=== PATIENT | male | born 1970 | race Caucasian/White ===

== ENCOUNTER 2016-04-05 14:08 | Inpatient (IN) | payer BC ==
[~2016-04-05] VITALS: Ht 172.7 cm; Wt 54.4 kg
[~2016-04-05 14:08] MED LIST: ALBUTEROL0.09 MG/Ac IH; NOMEDS XX; ZITHROMAX Z-PA250 M1 PO
[2016-04-05 14:13] VITALS: BP 127/97
[2016-04-05 14:41] LABS: HEMOGLOBIN 15.1 g/dL (14.1-18.0); LYMPH # 2.1 K/mm3 (0.7-4.5); LYMPH % 16.8 % (10-50)
--- NOTE | 2016-04-05 15:01 | Emergency Room Report ---
History of Present Illness Time Seen by MD Ramos Presenting Problem in Triage Pt arrived:Walked Presenting Problem:PT STATES CHEST PAIN THAT WENT UP IN THE LEFT SIDE OF HIS NECK STARTED 1630 YESTERDAY. 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 N Clinical Suspician of Infection? N Mental Status: 1 - Regular (Normal Baseline) Sepsis Risk:Low Sepsis Risk Have you (or family members/close friends) recently traveled outside the [place]? N If Yes, where/when: Have you had exposure to infectious disease within the past month? TB? Other? Specify: Source patient, RN notes reviewed Exam Limitations no limitations Comment Chest pain on the left side that started around 4:30PM yesterday and goes into his left neck and is sharp in nature and rates the pain as an 8/10. No nausea, vomting or diaphoresis. He still smokes over a pack a day but no other medical problems Cardiac Chest Pain Chest pain indicative of cardiac Yes Timing/Duration 24 hours ALLERGIES Coded Allergies: No Known Drug Allergies (04/05/16) Home Medications Active Scripts Albuterol (Albuterol Inhaler) 0.09 MG IH Q6HP PRN bronchospasm #1 POW Prov: 08/16/14 History Medical History General CAD? No Angina: No [place]: No Hypertension? No Hyperlipidemia? No CHF? No COPD? No Asthma? No Anemia? No Hernia? No Thyroid Problems? No Hypothyroidism? No CVA? No Seizures? No Diabetes? No End Stage Renal Disease? No UTI? No Stones? No GB Disease: No Nephritic Syndrome? No Asplenia? No Hepatitis? No Sickle Cell Disease? No Arthritis? No Cataracts? No Glaucoma? No MRSA? No TB? No Cancer? No Site: N Immunization Hx DT/Tetanus Unknown Surgical Hx Previous Surgery?N Social History Smoking Hx Smoker: Current Every Day Smoker Tobacco: Yes Type Cigarettes Packs/day 1 1/2 - 2 Packs Alcohol Alcohol: No Review of Systems All Other Systems Reviewed and Negative Constitutional see HPI Respiratory see HPI Cardiovascular see HPI Physical Exam Vital Signs Vital Signs Date Time Temp Pulse Resp B/P Pulse O2 O2 Flow FiO2 Ox Delivery Rate 04/05 1916 18 04/05 1900 16 04/05 1850 18 04/05 1835 98.3 69 18 140/92 95 OXYGEN 2 04/05 1818 61 04/05 1818 98.6 61 20 144/79 04/05 1818 91 OXYGEN 04/05 1758 98.6 61 20 144/79 91 2 04/05 1747 61 20 136/93 93 04/05 1712 98.4 95 20 135/82 98 04/05 1709 95 20 135/82 98 04/05 1704 20 04/05 1618 98.4 71 16 132/81 98 04/05 1523 98.4 80 16 112/74 98 04/05 1501 16 04/05 1413 98.4 97 18 127/97 98 General Appearance normal appearance, WD/WN, no apparent distress Respiratory Status No: respiratory distress. Lung Sounds bilateral: rhonchi. 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 Yes Turner was queried for this patient? No Reason not queried - emergent pt cond=no time Results/Orders Laboratory Tests 04/05/16 1425: Sodium 139, Potassium 3.9, Chloride 102, Carbon Dioxide 26, BUN 10, Creatinine 0.8, Estimated Creat Clear 99, Estimated GFR (MDRD) 106, Glucose 131 H, Calcium 9.0, Total Bilirubin 0.4, AST 13 L, ALT 18, Alkaline Phosphatase 85, Creatine Kinase 68, CK-MB (CK-2) Rel Index 2.2, CK and CKMB Interp 1.5, Troponin I 0.02, Total Protein 7.9, Albumin 4.0, Globulin 3.9 H, Albumin/Globulin Ratio 1.0 L, D-Dimer < 100, WBC 12.4 H, RBC 5.02, Hgb 15.1, Hct 45.8, MCV 91.2, RDW 13.6, Plt Count 372, MPV 8.0, Gran % 76.8, Gran # 9.5 H, Lymphocytes % 16.8, Monocytes % 4.7, Eosinophils % 1.0, Basophils % 0.7, Lymphocytes # 2.1, Monocytes # 0.6, Eosinophils # 0.1, Basophils # 0.1, PUBS MCHC 33.0, MCH 30.1 Current Medication Orders Sig/Dionne Start time Last Medication Dose Route Stop Time Status Admin Acetaminophen 650 MG Q4HP PRN 04/05 1800 AC PO Acetaminophen/ 1 TAB Q6HP PRN 04/05 1800 AC 04/05 Hydrocodone Bitart PO 1916 Influenza Virus 0.5 ML PRN PRN 04/05 1800 AC Vaccine Quadrival IM Nicotine 21 MG DAILYP PRN 04/05 1800 AC TD Ondansetron HCl 4 MG Q6HP PRN 04/05 1800 AC 04/05 IV 1850 Orders Procedure Date/time Status CBC WITH AUTO DIFF 04/06 0600 Complete BASIC METABOLIC PROFILE 04/06 0600 Complete DIET-REGULAR ( TOLERATED) 04/05 D Complete ADMITTED PT IS ACTUALLY IN BED 04/05 1838 Active Decision to admit 04/05 1614 Active D-DIMER 04/05 1458 Complete ELECTROCARDIOGRAM REQUEST 04/05 1422 Active IV SALINE LOCK 04/05 1422 Active GEOTECHNICIAN 04/05 1422 Active COMPLETE METABOLIC PANEL 04/05 1422 Complete CBC WITH AUTO DIFF 04/05 1422 Complete CARDIAC ENZYMES 04/05 1422 Complete 12 LEAD EKG-BESSON (INITIAL) 04/05 1420 Active ADMIT PATIENT 04/05 UNK Active PULSE OXIMETRY REQUEST 04/05 UNK Active VITAL SIGNS 04/05 UNK Active ALIGNER 04/05 UNK Active POM NURSE KIRK HOSE ORDER 04/05 UNK Active RECORD I & O 04/05 UNK Active CODE STATUS 04/05 UNK Active PATIENT ACTIVITY ORDER 04/05 UNK Active CM/EKG CM/agricultural equipment test engineer Rhythm Normal Sinus Rhythm EKG rate (90), NSR, LAD and COPD pattern XRAY/CT/US XRAY/CT/US XRAY chest XR interpretation by discussed w/radiologist Xray Results Large Pneumothorax on left side but no evidence of tension pneumothorax Procedures Chest Tube Chest Tube Insertion Risks/benefits discussed with pt/guardian? Yes Chest Tube Location fifth interspace Anesthesia 1% Lidocaine Volume Anesthetic ml- 10 Size of Thai Tube (cm) 28 Chest Tube Procedure betadine prep, sterile drapes applied, bailey of air heard, tube sutured to skin, connected to suction, sterile dressing applied, post procedure CXR. Tube Drainage: air Progress LEFT ANTERIOR AXILLARY LINE AT THE 5TH ICS OPENED WITH #15 BLADE ABOUT A 2 CM INCISION. BLUNT DISSECTION TO THE ICS AND A LARGE CURVED BLUNT FORCEPS USED TO OPEN THE PLEURAL SPACE WITH A LARGE BAILEY OF AIR. 28F CHEST TUBE INSERTED OVER TROCHAR WITHOUT DIFFICULTY. SUTURED TO THE SKIN WITH 0-SILK SUTURE x 2 AND CHEST TUBE ANCHORED WITH SUTURE WELL. PETROLEUM GAUZE APPLIED AROUND THE TUBE AND 4X4'S APPLIED AND TAPED WITH 3" FOAM TAPE AND TUBE HOOKED UP TO PLEUROVAC WELL. pT. TOLERATED PROCEDURE WELL Departure Departure Time of Disposition 1715 Disposition Still a Patient Clinical Impression Primary Impression: Pneumothorax, left Condition STABLE Referrals NO REFERRAL (Family) Additional Instructions Being admitted to Dr. Joseph after chest tube placement. ED Critical Care Critical Care No at [id number]
--- NOTE | 2016-04-05 15:01 | Emergency Room Report ---
History of Present Illness Time Seen by MD Ramos Presenting Problem in Triage Pt arrived:Walked Presenting Problem:PT STATES CHEST PAIN THAT WENT UP IN THE LEFT SIDE OF HIS NECK STARTED 1630 YESTERDAY. 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 N Clinical Suspician of Infection? N Mental Status: 1 - Regular (Normal Baseline) Sepsis Risk:Low Sepsis Risk Have you (or family members/close friends) recently traveled outside the [place]? N If Yes, where/when: Have you had exposure to infectious disease within the past month? TB? Other? Specify: Source patient, RN notes reviewed Exam Limitations no limitations Comment Chest pain on the left side that started around 4:30PM yesterday and goes into his left neck and is sharp in nature and rates the pain as an 8/10. No nausea, vomting or diaphoresis. He still smokes over a pack a day but no other medical problems Cardiac Chest Pain Chest pain indicative of cardiac Yes Timing/Duration 24 hours ALLERGIES Coded Allergies: No Known Drug Allergies (04/05/16) Home Medications Active Scripts Albuterol (Albuterol Inhaler) 0.09 MG IH Q6HP PRN bronchospasm #1 POW Prov: 08/16/14 History Medical History General CAD? No Angina: No [place]: No Hypertension? No Hyperlipidemia? No CHF? No COPD? No Asthma? No Anemia? No Hernia? No Thyroid Problems? No Hypothyroidism? No CVA? No Seizures? No Diabetes? No End Stage Renal Disease? No UTI? No Stones? No GB Disease: No Nephritic Syndrome? No Asplenia? No Hepatitis? No Sickle Cell Disease? No Arthritis? No Cataracts? No Glaucoma? No MRSA? No TB? No Cancer? No Site: N Immunization Hx DT/Tetanus Unknown Surgical Hx Previous Surgery?N Social History Smoking Hx Smoker: Current Every Day Smoker Tobacco: Yes Type Cigarettes Packs/day 1 1/2 - 2 Packs Alcohol Alcohol: No Review of Systems All Other Systems Reviewed and Negative Constitutional see HPI Respiratory see HPI Cardiovascular see HPI Physical Exam Vital Signs Vital Signs Date Time Temp Pulse Resp B/P Pulse O2 O2 Flow FiO2 Ox Delivery Rate 04/05 1916 18 04/05 1900 16 04/05 1850 18 04/05 1835 98.3 69 18 140/92 95 OXYGEN 2 04/05 1818 61 04/05 1818 98.6 61 20 144/79 04/05 1818 91 OXYGEN 04/05 1758 98.6 61 20 144/79 91 2 04/05 1747 61 20 136/93 93 04/05 1712 98.4 95 20 135/82 98 04/05 1709 95 20 135/82 98 04/05 1704 20 04/05 1618 98.4 71 16 132/81 98 04/05 1523 98.4 80 16 112/74 98 04/05 1501 16 04/05 1413 98.4 97 18 127/97 98 General Appearance normal appearance, WD/WN, no apparent distress Respiratory Status No: respiratory distress. Lung Sounds bilateral: rhonchi. 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 Yes Turner was queried for this patient? No Reason not queried - emergent pt cond=no time Results/Orders Laboratory Tests 04/05/16 1425: Sodium 139, Potassium 3.9, Chloride 102, Carbon Dioxide 26, BUN 10, Creatinine 0.8, Estimated Creat Clear 99, Estimated GFR (MDRD) 106, Glucose 131 H, Calcium 9.0, Total Bilirubin 0.4, AST 13 L, ALT 18, Alkaline Phosphatase 85, Creatine Kinase 68, CK-MB (CK-2) Rel Index 2.2, CK and CKMB Interp 1.5, Troponin I 0.02, Total Protein 7.9, Albumin 4.0, Globulin 3.9 H, Albumin/Globulin Ratio 1.0 L, D-Dimer < 100, WBC 12.4 H, RBC 5.02, Hgb 15.1, Hct 45.8, MCV 91.2, RDW 13.6, Plt Count 372, MPV 8.0, Gran % 76.8, Gran # 9.5 H, Lymphocytes % 16.8, Monocytes % 4.7, Eosinophils % 1.0, Basophils % 0.7, Lymphocytes # 2.1, Monocytes # 0.6, Eosinophils # 0.1, Basophils # 0.1, PUBS MCHC 33.0, MCH 30.1 Current Medication Orders Sig/Dionne Start time Last Medication Dose Route Stop Time Status Admin Acetaminophen 650 MG Q4HP PRN 04/05 1800 AC PO Acetaminophen/ 1 TAB Q6HP PRN 04/05 1800 AC 04/05 Hydrocodone Bitart PO 1916 Influenza Virus 0.5 ML PRN PRN 04/05 1800 AC Vaccine Quadrival IM Nicotine 21 MG DAILYP PRN 04/05 1800 AC TD Ondansetron HCl 4 MG Q6HP PRN 04/05 1800 AC 04/05 IV 1850 Orders Procedure Date/time Status CBC WITH AUTO DIFF 04/06 0600 Complete BASIC METABOLIC PROFILE 04/06 0600 Complete DIET-REGULAR ( TOLERATED) 04/05 D Complete ADMITTED PT IS ACTUALLY IN BED 04/05 1838 Active Decision to admit 04/05 1614 Active D-DIMER 04/05 1458 Complete ELECTROCARDIOGRAM REQUEST 04/05 1422 Active IV SALINE LOCK 04/05 1422 Active COUNSELING AIDE 04/05 1422 Active COMPLETE METABOLIC PANEL 04/05 1422 Complete CBC WITH AUTO DIFF 04/05 1422 Complete CARDIAC ENZYMES 04/05 1422 Complete 12 LEAD EKG-BESSON (INITIAL) 04/05 1420 Active ADMIT PATIENT 04/05 UNK Active PULSE OXIMETRY REQUEST 04/05 UNK Active VITAL SIGNS 04/05 UNK Active CONTACT WORKER 04/05 UNK Active POM NURSE KIRK HOSE ORDER 04/05 UNK Active RECORD I & O 04/05 UNK Active CODE STATUS 04/05 UNK Active PATIENT ACTIVITY ORDER 04/05 UNK Active CM/EKG CM/carpenter prototype Rhythm Normal Sinus Rhythm EKG rate (90), NSR, LAD and COPD pattern XRAY/CT/US XRAY/CT/US XRAY chest XR interpretation by discussed w/radiologist Xray Results Large Pneumothorax on left side but no evidence of tension pneumothorax Procedures Chest Tube Chest Tube Insertion Risks/benefits discussed with pt/guardian? Yes Chest Tube Location fifth interspace Anesthesia 1% Lidocaine Volume Anesthetic ml- 10 Size of Czech Tube (cm) 28 Chest Tube Procedure betadine prep, sterile drapes applied, bailey of air heard, tube sutured to skin, connected to suction, sterile dressing applied, post procedure CXR. Tube Drainage: air Progress LEFT ANTERIOR AXILLARY LINE AT THE 5TH ICS OPENED WITH #15 BLADE ABOUT A 2 CM INCISION. BLUNT DISSECTION TO THE ICS AND A LARGE CURVED BLUNT FORCEPS USED TO OPEN THE PLEURAL SPACE WITH A LARGE BAILEY OF AIR. 28F CHEST TUBE INSERTED OVER TROCHAR WITHOUT DIFFICULTY. SUTURED TO THE SKIN WITH 0-SILK SUTURE x 2 AND CHEST TUBE ANCHORED WITH SUTURE WELL. PETROLEUM GAUZE APPLIED AROUND THE TUBE AND 4X4'S APPLIED AND TAPED WITH 3" FOAM TAPE AND TUBE HOOKED UP TO PLEUROVAC WELL. pT. TOLERATED PROCEDURE WELL Departure Departure Time of Disposition 1715 Disposition Still a Patient Clinical Impression Primary Impression: Pneumothorax, left Condition STABLE Referrals NO REFERRAL (Family) Additional Instructions Being admitted to Dr. Joseph after chest tube placement. ED Critical Care Critical Care No at [id number]
--- NOTE | 2016-04-05 15:54 | RADIOLOGY REPORT PS360 ---
CHEST-PORTABLE COMPARISON: PA and lateral chest 08/16/2014 HISTORY: Chest pain TECHNIQUE: Portable upright chest FINDINGS: There is a large left-sided pneumothorax without mediastinal shift. Underlying emphysematous changes are noted which were described previously. Is a focal area of parenchymal scarring in the left upper lobe which was noted previously for which follow-up CT scan was recommended but probably not performed. The right lung field is somewhat hyperexpanded but clear. There is blunting of the left costophrenic angle and this was noted previously. IMPRESSION: Large left-sided pneumothorax without evidence of tension probably secondary to rupture of a apical bleb in this patient with underlying moderately severe emphysema
[2016-04-05 17:12] VITALS: BP 135/82
--- NOTE | 2016-04-05 17:41 | RADIOLOGY REPORT PS360 ---
CHEST-PORTABLE COMPARISON: Portable upright chest same date HISTORY: Chest tube insertion for pneumothorax TECHNIQUE: Oral upright chest FINDINGS: The chest tube seen entering the left lateral chest with the tip projecting into the left apex. There has been partial reexpansion of the large pneumothorax. A small to moderate-sized pneumothorax remains at the left costophrenic angle. Again there is no mediastinal shift. There is no subcutaneous air. IMPRESSION: Interval partial reexpansion of the large left pneumothorax, just follow-up film in 8 to 12 hours for continuing evaluation
[2016-04-05 18:18] VITALS: BP 144/79
[2016-04-05 18:35] VITALS: BP 140/92
--- NOTE | 2016-04-05 20:27 | RADIOLOGY REPORT PS360 ---
CHEST-PORTABLE COMPARISON: Portable upright chest same day HISTORY: New chest pain since insertion of the chest tube TECHNIQUE: Portable upright chest FINDINGS: The chest tube remains unchanged in position with the tip ascending to the left apex area, there is a [id number] sized pneumothorax remaining at the left lower lateral chest. There is no subcutaneous air in the left chest wall. The right lung remains well expanded and clear. Monitor lines are seen overlying the chest. IMPRESSION: Basically stable chest post chest tube insertion unchanged from most recent post chest tube film, small pneumothorax remaining at the left lower lateral chest.
--- NOTE | 2016-04-05 20:27 | RADIOLOGY REPORT PS360 ---
CHEST-PORTABLE COMPARISON: Portable upright chest same day HISTORY: New chest pain since insertion of the chest tube TECHNIQUE: Portable upright chest FINDINGS: The chest tube remains unchanged in position with the tip ascending to the left apex area, there is a [id number] sized pneumothorax remaining at the left lower lateral chest. There is no subcutaneous air in the left chest wall. The right lung remains well expanded and clear. Monitor lines are seen overlying the chest. IMPRESSION: Basically stable chest post chest tube insertion unchanged from most recent post chest tube film, small pneumothorax remaining at the left lower lateral chest.
[2016-04-05 20:42] VITALS: BP 127/85
[2016-04-06] VITALS (7 sets, daily range): BP systolic 102–128; BP diastolic 71–87
[2016-04-06 07:43] LABS: HEMOGLOBIN 14.5 g/dL (14.1-18.0); LYMPH # 3.4 K/mm3 (0.7-4.5); LYMPH % 36.1 % (10-50)
--- NOTE | 2016-04-06 09:09 | RADIOLOGY REPORT PS360 ---
CHEST-PORTABLE COMPARISON: Portable chest films 04/05/2016 HISTORY: Follow-up pneumothorax TECHNIQUE: Portable upright chest FINDINGS: There now has been essentially complete reexpansion of the left-sided pneumothorax. The chest tube remains in place with the tip near the apex adjacent to the area of postinflammatory scarring described previously. Again there is no subcutaneous air noted. There is some minimal atelectasis at the left base. The right lung field remains clear and again noted are the underlying emphysematous changes. IMPRESSION: Essentially complete reexpansion of the large left-sided pneumothorax
--- NOTE | 2016-04-06 10:03 | PHARMACY CLINIC NOTE ---
Patient Demographics Patient Demographics Admission date: 04/05/16 Allergies Coded Allergies: No Known Drug Allergies (04/05/16) HEIGHT- FT: 5 IN: 8.00 K.432 VTE General Information Labs: Laboratory Tests 04/06 04/05 0620 1425 Hematology Hgb (14.1 - 18.0 g/dL) 14.5 15.1 Hct (42.0 - 52.0 %) 44.2 45.8 Plt Count (142 - 424 K/mm3) [id number] Disclaimer The following section includes nursing documentation that has been pulled in for pharmacy review. Patient's VTE score: 1 Patient's VTE Risk: VERY LOW RISK Clinical trial participant? No VTE prophylaxis Type of prophylaxis/treatment: KIRK at 1002
[2016-04-07] VITALS (9 sets, daily range): BP systolic 100–123; BP diastolic 73–83
--- NOTE | 2016-04-07 06:54 | RADIOLOGY REPORT PS360 ---
CHEST(2 VIEWS-NOT PORTABLE) COMPARISON: Portable upright chest 04/06/2016 HISTORY: Follow-up pneumothorax TECHNIQUE: PA and lateral chest FINDINGS: There now has been recurrence of the left-sided pneumothorax at the left lung base. The size of the pneumothorax is similar to that seen following initially placement of the chest tube. There now is a small amount of subcutaneous air within tissues of the left chest wall. There also is a small amount of fluid at the left costo phrenic angle which is a new finding. The chest remains unchanged in overall position. The right lung field remains well expanded and clear. IMPRESSION: Interval recurrence of [id number] sized left pneumothorax at the left lung base now with associated small pleural effusion
--- NOTE | 2016-04-07 06:54 | RADIOLOGY REPORT PS360 ---
CHEST(2 VIEWS-NOT PORTABLE) COMPARISON: Portable upright chest 04/06/2016 HISTORY: Follow-up pneumothorax TECHNIQUE: PA and lateral chest FINDINGS: There now has been recurrence of the left-sided pneumothorax at the left lung base. The size of the pneumothorax is similar to that seen following initially placement of the chest tube. There now is a small amount of subcutaneous air within tissues of the left chest wall. There also is a small amount of fluid at the left costo phrenic angle which is a new finding. The chest remains unchanged in overall position. The right lung field remains well expanded and clear. IMPRESSION: Interval recurrence of [id number] sized left pneumothorax at the left lung base now with associated small pleural effusion
--- NOTE | 2016-04-07 12:01 | SURGEON PROGRESS NOTE ---
Subjective data Subjective data: YASMIN MARIA is a 45 M .Patient denies complaint of nausea and vomitting.He reports his last pain level as 0 on a 0-10 pain scale. Patient is without complaints other than soreness from the chest tube site. Denies severe chest pain or shortness of air. Objective data Vitals,I&O,and Labs: Vital signs, intake and output,and available lab data for the last 24 hours is as noted below. Vital Signs Date Time Temp Pulse Resp B/P Pulse O2 O2 Flow FiO2 Ox Delivery Rate 04/07 1133 97.8 61 20 119/75 92 ROOM AIR 04/07 0840 97.9 67 20 120/83 94 ROOM AIR 04/07 0836 97.8 71 16 115/77 91 04/07 0830 16 04/07 0404 97.8 71 16 115/77 91 ROOM AIR 04/07 0043 2 04/07 0042 2 04/07 0036 97.7 65 18 120/77 93 OXYGEN 2 04/06 2200 2 04/06 2018 98.7 66 20 128/87 95 OXYGEN 2 04/06 1930 18 04/06 1930 98.7 66 20 128/87 95 04/06 1636 98.3 63 18 111/79 91 ROOM AIR 04/06 1412 18 04/06 1316 98.0 55 18 112/74 90 ROOM AIR 04/07 0700 04/06 2300 04/06 1500 Intake Total 960 Output Total Balance 960 Intake, Oral 960 Laboratory Tests Test Result Date Time Chemistry Sodium (mmoL/L) 139 04/06 0620 Potassium (mmoL/L) 4.2 04/06 0620 Chloride (mmoL/L) 101 04/06 0620 Carbon Dioxide (mmoL/L) 30 04/06 0620 BUN (mg/dL) 12 04/06 0620 Creatinine (mg/dL) 0.8 04/06 0620 Estimated Creat Clear (ML/MIN) 92 04/06 0620 Estimated GFR (MDRD) (ML/MIN) 106 04/06 0620 Glucose (mg/dL) 91 04/06 0620 Calcium (mg/dL) 8.9 04/06 0620 Total Bilirubin (mg/dL) 0.4 04/05 1425 AST (U/L) 13 04/05 1425 ALT (U/L) 18 04/05 1425 Alkaline Phosphatase (U/L) 85 04/05 142 Creatine Kinase (U/L) 68 04/05 142 CK-MB (CK-2) Rel Index (U/L) 2.2 04/05 142 CK and CKMB Interp (ng/mL) 1.5 04/05 142 Troponin I (ng/mL) 0.02 04/05 142 Total Protein (gm/dL) 7.9 04/05 142 Albumin (gm/dL) 4.0 04/05 142 Globulin (gm/dL) 3.9 04/05 142 Albumin/Globulin Ratio 1.0 04/05 142 Coagulation D-Dimer (ng/mL) < 100 04/05 142 Hematology WBC (K/MM3) 9.5 04/06 619 RBC (M/mm3) 4.76 04/06 619 Hgb (g/dL) 14.5 04/06 619 Hct (%) 44.2 04/06 619 MCV (fl) 92.9 04/06 619 RDW (%) 13.9 04/06 619 Plt Count (K/mm3) 339 04/06 619 MPV (fl) 8.3 04/06 619 Gran % (%) 49.1 04/06 619 Gran # (K/mm3) 4.7 04/06 619 Lymphocytes % (%) 36.1 04/06 619 Monocytes % (%) 8.1 04/06 619 Eosinophils % (%) 5.9 04/06 619 Basophils % (%) 0.9 04/06 619 Lymphocytes # (K/mm3) 3.4 04/06 619 Monocytes # (K/mm3) 0.8 04/06 619 Eosinophils # (K/mm3) 0.6 04/06 619 Basophils # (K/MM3) 0.1 04/06 619 PUBS MCHC (g/dl) 32.8 04/06 619 Immunology MCH (pg) 30.4 04/06 619 Assessment findings Assessment Exam General appearance: normal appearance, alert Respiratory: good air movement Comment: He has some wheezes on the LEFT. Slightly diminished breath sounds. Patient plan Plan: IV fluids Additional data: Chest tube has been on waterseal. He does show air leak. Chest x-ray today revealed reaccumulation of pneumothorax. Chest tube placed back on suction with persistent air leak. We'll maintain suction at this time until air leak resolves. If patient shows no resolution with conservative measures could require transfer for thoracoscopic surgery. at 1201
[2016-04-08] VITALS (8 sets, daily range): BP systolic 112–164; BP diastolic 72–82
--- NOTE | 2016-04-08 09:21 | RADIOLOGY REPORT PS360 ---
CHEST-PORTABLE HISTORY: Follow-up pneumothorax pneumothorax COMPARISON: 04/07/2016 FINDINGS: Left-sided chest tube remains in place. Left-sided pneumothorax has decreased in size. A definite pneumothorax is not identified on this portable exam. There is some subcutaneous emphysema in the left chest wall and left supraclavicular area. Increased density is present in the left apex indeterminate. Pulmonary mass is a consideration. Small left effusion suspected. The cardiomediastinal silhouette and pulmonary vascularity are within normal limits. IMPRESSION: 1. Resolved left-sided pneumothorax with left chest tube in place and small amount subcutaneous emphysema on the left 2. Left apical nodular opacity measuring 3 x 1.8 cm
--- NOTE | 2016-04-08 12:45 | SURGEON PROGRESS NOTE ---
Subjective data Subjective data: YASMIN MARIA is a 45 M .Patient denies complaint of nausea and vomitting.He reports his last pain level as 0 on a 0-10 pain scale. Patient is without complaints. No shortness of air. Assessment findings Assessment Exam General appearance: normal appearance, alert Respiratory: good air movement, wheezing Patient plan Plan: Chest tube Additional data: CXR today reveals no pneumothorax. CT reveals small intermittent air leak. Continue on suction for now. If air leak resolves may be able to place on water seal. at [id number]
[2016-04-09] VITALS (7 sets, daily range): BP systolic 114–143; BP diastolic 64–89
--- NOTE | 2016-04-09 07:35 | SURGEON PROGRESS NOTE ---
Subjective data Subjective data: YASMIN MARIA is a 45 M .Patient denies complaint of nausea and vomitting.He reports his last pain level as 0 on a 0-10 pain scale. No complaints. No shortness of breath or chest pain. Assessment findings Assessment Exam General appearance: normal appearance, alert Respiratory: good air movement, diminished breath sounds, wheezing Comment: Diminished breath sounds and wheezes on left. Patient plan Plan: IV fluids Additional data: Still with somewhat of an air leak. Wheezes on left. Will recheck CXR and maintain suction for now. at 0748
--- NOTE | 2016-04-09 11:18 | RADIOLOGY REPORT PS360 ---
CHEST-PORTABLE HISTORY: Follow-up pneumothorax PNEUMOTHORAX COMPARISON: 04/08/2016 FINDINGS: Left-sided chest tube remains in place. There remains some subcutaneous emphysema along the chest wall on the left. No obvious pneumothorax. Left apical parenchymal opacity once again noted. Right lung is clear. IMPRESSION: 1. No evidence of pneumothorax. 2. Overall no change left-sided chest tube, subcutaneous emphysema, left apical density
[2016-04-10] VITALS (9 sets, daily range): BP systolic 110–153; BP diastolic 68–80
--- NOTE | 2016-04-10 08:56 | SURGEON PROGRESS NOTE ---
Subjective data Subjective data: YASMIN MARIA is a 45 M .Patient denies complaint of nausea and vomitting.He reports his last pain level as 0 on a 0-10 pain scale. No complaints. Denies shortness of air or chest pain. Assessment findings Assessment Exam General appearance: normal appearance, alert Respiratory: aerating well, clear to auscultation Patient plan Plan: Chest tube Additional data: No air leak today. Place to water seal. CXR tomorrow and if stable may be able to DC chest tube in the morning. at 0855
[2016-04-11] VITALS (7 sets, daily range): BP systolic 111–146; BP diastolic 72–81
--- NOTE | 2016-04-11 08:24 | SURGEON PROGRESS NOTE ---
Subjective data Subjective data: YASMIN MARIA is a 45 M .Patient denies complaint of nausea and vomitting.He reports his last pain level as 0 on a 0-10 pain scale. Patient doing relatively well. Has some medial chest discomfort. No shortness of air. Assessment findings Assessment Exam General appearance: normal appearance, alert Respiratory: wheezing Patient plan Plan: CXR Additional data: No air leak on water seal overnight. Will get CXR this morning MICK. If okay will DC chest tube. at 0824
--- NOTE | 2016-04-11 09:30 | RADIOLOGY REPORT PS360 ---
CHEST(2 VIEWS-NOT PORTABLE) ORDERING PHYSICIAN : Oscar Burleson MD PATIENT AGE: 45 years GENDER: Male Follow-up INDICATION: PNEUMOTHORAX follow-up. COPD TECHNIQUE: PA lateral chest COMPARISON: Portable chest from yesterday FINDINGS Left chest tube remains in place. No significant pneumothorax evident. Questionably could be a tiny equivocal sliver of left apical pneumothorax but this is questionable at best. Images reviewed with Dr. Burleson. Blunting left CP angle again evident. Dense area of linear scarring at the left apex. The chest tube enters on the lateral lower left chest with tip towards the right apex. But there is some minimal resolving subcutaneous air diffusely seen overlying the left chest Underlying COPD with bleb formation most evident at the left. Right lung hyperexpanded and clear. Heart jo and mediastinal structures stable., left upper lobe --- IMPRESSION: Left chest tube remains in place. Left lung appears well-expanded no significant residual pneumothorax. Only Questionable sliver pneumothorax overlying left apex-equivocal COPD. Hyperexpansion. Dense Linear scarring left apex again noted
--- NOTE | 2016-04-11 15:49 | ACUTE CARE PROGRESS NOTE (QUA) ---
Progress note: - Patient feels much better and has been able to rest better with chest tube out. CXR reveals no reaccumulation of pneumothorax. On exam patient has subcutaneous emphysema. A bit of air in the occlusive dressing. Plan for continued monitoring overnight. CXR tomorrow morning. Possible DC tomorrow if stable. at [id number]
--- NOTE | 2016-04-11 15:59 | RADIOLOGY REPORT PS360 ---
CHEST(2 VIEWS-NOT PORTABLE) #2 ORDERING PHYSICIAN : Oscar Burleson MD PATIENT AGE: 45 years GENDER: Male INDICATION: PNEUMOTHORAX, CHEST TUBE REMOVAL TECHNIQUE: PA and lateral chest COMPARISON: Studies from earlier today and yesterday FINDINGS Left Chest tube has been removed. The left lung remains well-expanded and unchanged since earlier study at 8:30 AM with chest tube. Chest tube is been removed for prostate 6 hours with no recurrent pneumothorax evident. Very subtle line at the left apex may merely reflect pleural contour line. The more prominent vertical oblique density at the left upper lung & left apex has been seen since 2014 may supporting it is a long-standing scarring chronic feature. Underlying COPD and prominent hyperexpansion appears similar. No new findings Resolving subcutaneous air overlying the left chest. Meaghan and heart and mediastinal structures stable satisfactory IMPRESSION: No significant pneumothorax several hours following left chest tube removal
[2016-04-12 03:55] VITALS: BP 110/71
[2016-04-12 07:44] VITALS: BP 119/75
--- NOTE | 2016-04-12 08:15 | SURGEON PROGRESS NOTE ---
Subjective data Subjective data: YASMIN MARIA is a 45 M .Patient denies complaint of nausea and vomitting.He reports his last pain level as 0 on a 0-10 pain scale. No complaints Assessment findings Assessment Exam General appearance: normal appearance, alert Respiratory: aerating well Patient plan Plan: DC Home at 0815
--- NOTE | 2016-04-12 08:21 | DISCHARGE SUMMARY STANDARD ---
Demographics Admit date: 04/05/16 Discharge date: 04/12/16 History of present illness History of present illness Patient is a 45-year-old white male who presented to the emergency department on 04/05/16 with a 24-hour history of left-sided chest pain radiating into his neck. Upon presentation to the emergency department he underwent chest x-ray which revealed a large left-sided pneumothorax. ER physician placed LEFT thoracostomy tube and contacted surgery consulting services associate for management. Hospital Course Hospital Course: Patient underwent placement of left-sided thoracostomy tube with resolution of pneumothorax by the ER physician. He was admitted to medical surgical floor and chest tube was on suction. He was initially under the care of Dr. Genaro Sheehan. On 04/06/16 his chest tube was placed to waterseal. The following day on 04/07/16 he was noted to have an air leak and chest x-ray revealed reaccumulation of pneumothorax. Therefore his chest tube was placed back on suction. Follow-up chest x-ray revealed resolution of pneumothorax. However, he continued to have persistent air leak for several days. Ultimately, on 04/10/16, it appeared as though air leak had resolved. Chest tube was placed to waterseal at that time. Following morning on 04/11/16 chest tube was removed. However, due to subcutaneous emphysema and active accumulation of air underneath the dressing plan was made for continued observation. He underwent follow-up chest x-ray the afternoon of 04/11/16 and in the morning of 04/12/16. These appeared stable with no pneumothorax. Patient was aerating well with no chest pain. His dressing was changed once again on the morning of 04/12/16 and plan was made for discharge home. Discharge diagnoses Problem List 1. Pneumothorax, left Medications Medications: Discharge meds are as noted. Follow up Follow up in office in: 6 DAYS with: Oscar Burleson MD at 0821
--- NOTE | 2016-04-12 08:53 | RADIOLOGY REPORT PS360 ---
CHEST(2 VIEWS-NOT PORTABLE) ORDERING PHYSICIAN : Oscar Burleson MD PATIENT AGE: 45 years GENDER: Male INDICATION: Follow-up pneumothorax. PNEUMOTHORAX, COPD chest tube removed yesterday PROCEDURE: CHEST(2 VIEWS-NOT PORTABLE) COMPARISON: None available FINDINGS: Underlying COPD hyperexpansion. Chest tube was removed yesterday no recurrent or residual pneumothorax apparent on today's study. Stable appearing left chest. Again the dense vertically oriented linear area at the left upper lobe leading towards left apex appears to be a long-standing area of scarring which dates back to at least July 2014 CXR. The subcutaneous air overlying the left chest is shown further resolution Right lung stable unchanged and clear. Heart jo and mediastinal structures appear satisfactory and stable. IMPRESSION--- 1. Stable left chest following left chest tube removal -with no recurrent nor significant residual pneumothorax evident 2. COPD. No acute findings. 3. Stable dense linear area leading towards left apex unchanged 2014 & most compatible scarring
[2016-04-12 10:55] VITALS: BP 119/75
== END 2016-04-12 10:45 | disposition home or self-care (01) | DRG 201 ==
LOC: ER 14:08 → 2ND 16:20
PROVIDERS: General Practice
PROC: 0W9B30Z Drainage of Left Pleural Cavity with Drainage Device, Percutaneous Approach (ICD-10-PCS; principal; 2016-04-05)
DX: J93.83 Other pneumothorax (principal); Z72.0 Tobacco use
CPT/HCPCS: J2405

== ENCOUNTER → 2016-05-02 | Outpatient (CLI) | payer BC ==
--- NOTE | 2016-05-04 09:06 | RADIOLOGY REPORT PS360 ---
CT CHEST W/ CONTRAST INDICATION: Abnormal chest x-ray, COPD,, pulmonary nodule, follow-up pneumothorax PNEUMOTHORAX ORDERING PHYSICIAN: Oscar Burleson MD PATIENT AGE: 45 years COMPARISON: None TECHNIQUE: Axial images are obtained with contrast. Sagittal and coronal reformatted images are reviewed as well. FINDINGS: There are scattered small lymph nodes in the axilla and mediastinum. No enlarged nodes are evident. There is aberrant right subclavian artery as a normal variant. No evidence of aortic aneurysm or central pulmonary embolus. Moderate panlobular emphysematous changes are present. 4 x 2 cm irregular increased density in the left apex probably related to scarring which is been stable on the radiograph 08/16/2014. There is some gas present within this area of scarring. Superimposed infection order processes probably less likely.. Mild fibrotic changes are present in the right apex. There is no evidence of residual pneumothorax. A pleural nodular opacity is present in the right lower lobe posteriorly nonspecific 5 mm. No lobar consolidation or collapse is evident. Upper abdominal images are unremarkable. No acute bony anomalies IMPRESSION: 1. Severe panlobular emphysematous changes. 2. 4 x 2 cm irregular opacity with scarring in the left apex probably due to an area of fibrosis/scar. Consider 6 month follow-up for confirmation of short-term stability
== END ==
LOC: RAD 04-21 15:00
DX: J93.9 Pneumothorax, unspecified (principal); R91.8 Other nonspecific abnormal finding of lung field
CPT/HCPCS: Q9967

== ENCOUNTER 2016-06-02 15:42 | Emergency (ER) | payer BC ==
[~2016-06-02] VITALS: Ht 172.7 cm; Wt 56.7 kg
--- NOTE | 2016-06-02 16:37 | Urgent Treatment Center Report ---
History of Present Issue Date/Time Seen by Provider 06/02/16 1621 Visit Reason Pt arrived:Walked Presenting Problem:BOTH ARMS WERE CRAMPING UP/DRAWING ON THURSDAY , NOW THEY ARE JUST SORE . PT DENIES ANY OTHER SYMPTOMS Location if Accident: Onset of symptoms date/time:05/31/1602/06/1800 or onset unknown for: Have you (or family members/close friends) recently traveled outside the [place]? N If Yes, where/when: Have you had exposure to infectious disease within the past month? TB? Other? Specify: Patient states soniya the was working on Thursday when he had a muscle spasm in both arms that sheri up his hands and made his forarm muscles sore. Wants to know if we think he should be taking multi-vitamins. States that it has not happened again since Thursday ALLERGIES Coded Allergies: No Known Drug Allergies (04/05/16) Home Medications Active Scripts Albuterol (Albuterol Inhaler) 0.09 MG IH Q6HP PRN bronchospasm #1 POW Prov: 08/16/14 History Medical History General CAD? No Angina: No MS: No Hypertension? No Hyperlipidemia? No CHF? No DVT? No PE? No COPD? No Asthma? No Anemia? No GERD? No Gastric ulcers? No GI Bleed? No Hernia? No Thyroid Problems? No Hypothyroidism? No CVA? No Seizures? No Diabetes? No Renal Insuffiency? No UTI? No Stones? No BPH? No GB Disease: No Nephritic Syndrome? No Asplenia? No Hepatitis? No Sickle Cell Disease? No Arthritis? No Migraines? No Cataracts? No Glaucoma? No MRSA? No HIV? No TB? No Anxiety? No Depression? No Cancer? No Site: N More? No Immunization HX DT/Tetanus Unknown Flu Refused Pneumonia Refuses Surgical Hx Previous Surgery?N Family History Family HX Diabetes Yes CAD No Hypertension Yes Hyperlipidemia No Cancer Yes TB No Social History Smoking Hx Smoker: Current Every Day Smoker Tobacco: Yes Type Cigarettes Packs/day 1 1/2 - 2 Packs Alcohol Alcohol: No Review of Systems All Other Systems Reviewed and Negative Comment Patient states that he had like a muscle spasm in both foreams on Thursday after hours of repetative movement states that afte the spasms his forearms felt sore Physical Exam Vital Signs Vital Signs Date Time Temp Pulse Resp B/P Pulse O2 O2 Flow FiO2 Ox Delivery Rate 06/02 1613 98.3 68 20 148/79 99 06/02 1547 98.3 76 20 133/81 99 General Appearance normal appearance, WD/WN, no apparent distress Respiratory Status Yes: trachea midline, chest symmetrical, non tender chest. No: respiratory distress. Cardiovascular normal exam, regular rate/rhythm, no peripheral edema, no gallop Extremities non-tender, normal range of motion, normal inspection Strength 5 Upper Ext (L), 5 Upper Ext (R), 5 Lower Ext (L), 5 Lower Ext (R) Neurologic alert, cover marker II-XII nml as tested, normal exam, no motor/sensory deficits, oriented x 3 Medical Decision Making LABS/Meds/Orders Pt receiving controlled substance in ED? No Departure Departure Time of Disposition 1845 Disposition DC Home or Self Care(routine) Clinical Impression Primary Impression: Muscle spasm Condition STABLE Referrals NO REFERRAL (Family) Patient Instructions DI for Forearm Muscle Strain Additional Instructions Follow up with family doctor Take frequent breaks when doing repetative movement using hands Over the counter Motrin or Tylenol as needed for pain Return if needed Discharge Counseling Counseled pt/family regarding diagnosis, home care, follow up needs at 1634
--- NOTE | 2016-06-02 16:37 | Urgent Treatment Center Report ---
History of Present Issue Date/Time Seen by Provider 06/02/16 1621 Visit Reason Pt arrived:Walked Presenting Problem:BOTH ARMS WERE CRAMPING UP/DRAWING ON THURSDAY , NOW THEY ARE JUST SORE . PT DENIES ANY OTHER SYMPTOMS Location if Accident: Onset of symptoms date/time:05/31/1602/06/1800 or onset unknown for: Have you (or family members/close friends) recently traveled outside the [place]? N If Yes, where/when: Have you had exposure to infectious disease within the past month? TB? Other? Specify: Patient states soniya the was working on Thursday when he had a muscle spasm in both arms that sheri up his hands and made his forarm muscles sore. Wants to know if we think he should be taking multi-vitamins. States that it has not happened again since Thursday ALLERGIES Coded Allergies: No Known Drug Allergies (04/05/16) Home Medications Active Scripts Albuterol (Albuterol Inhaler) 0.09 MG IH Q6HP PRN bronchospasm #1 POW Prov: 08/16/14 History Medical History General CAD? No Angina: No [place]: No Hypertension? No Hyperlipidemia? No CHF? No DVT? No PE? No COPD? No Asthma? No Anemia? No GERD? No Gastric ulcers? No GI Bleed? No Hernia? No Thyroid Problems? No Hypothyroidism? No CVA? No Seizures? No Diabetes? No Renal Insuffiency? No UTI? No Stones? No BPH? No GB Disease: No Nephritic Syndrome? No Asplenia? No Hepatitis? No Sickle Cell Disease? No Arthritis? No Migraines? No Cataracts? No Glaucoma? No MRSA? No HIV? No TB? No Anxiety? No Depression? No Cancer? No Site: N More? No Immunization HX DT/Tetanus Unknown Flu Refused Pneumonia Refuses Surgical Hx Previous Surgery?N Family History Family HX Diabetes Yes CAD No Hypertension Yes Hyperlipidemia No Cancer Yes TB No Social History Smoking Hx Smoker: Current Every Day Smoker Tobacco: Yes Type Cigarettes Packs/day 1 1/2 - 2 Packs Alcohol Alcohol: No Review of Systems All Other Systems Reviewed and Negative Comment Patient states that he had like a muscle spasm in both foreams on Thursday after hours of repetative movement states that afte the spasms his forearms felt sore Physical Exam Vital Signs Vital Signs Date Time Temp Pulse Resp B/P Pulse O2 O2 Flow FiO2 Ox Delivery Rate 06/02 1613 98.3 68 20 148/79 99 06/02 1547 98.3 76 20 133/81 99 General Appearance normal appearance, WD/WN, no apparent distress Respiratory Status Yes: trachea midline, chest symmetrical, non tender chest. No: respiratory distress. Cardiovascular normal exam, regular rate/rhythm, no peripheral edema, no gallop Extremities non-tender, normal range of motion, normal inspection Strength 5 Upper Ext (L), 5 Upper Ext (R), 5 Lower Ext (L), 5 Lower Ext (R) Neurologic alert, raspberry checker II-XII nml as tested, normal exam, no motor/sensory deficits, oriented x 3 Medical Decision Making LABS/Meds/Orders Pt receiving controlled substance in ED? No Departure Departure Time of Disposition 1615 Disposition DC Home or Self Care(routine) Clinical Impression Primary Impression: Muscle spasm Condition STABLE Referrals NO REFERRAL (Family) Patient Instructions DI for Forearm Muscle Strain Additional Instructions Follow up with family doctor Take frequent breaks when doing repetative movement using hands Over the counter Motrin or Tylenol as needed for pain Return if needed Discharge Counseling Counseled pt/family regarding diagnosis, home care, follow up needs at 1635
[2016-06-02 16:44] VITALS: BP 148/79
== END 2016-06-02 16:44 | disposition home or self-care (01) ==
LOC: ER 15:42 → UTC 15:42
DX: M62.838 Other muscle spasm (principal)

== ENCOUNTER → 2016-10-28 | Outpatient (CLI) | payer BC ==
--- NOTE | 2016-10-29 10:57 | RADIOLOGY REPORT PS360 ---
CT CHEST W/ CONTRAST INDICATION: Follow-up pulmonary nodule, emphysema, COPD COPD, ORDERING PHYSICIAN: Oscar Burleson MD PATIENT AGE: 45 years COMPARISON: 05 02 16 TECHNIQUE: Axial images are obtained with contrast. Sagittal and coronal reformatted images are reviewed as well. FINDINGS: There is an irregular opacity once again noted in the left apex associated with some minimal calcification pleural parenchymal in nature consistent may be due to postinflammatory scarring. There is some nodularity of the lesion as before but not significantly changed. There are moderate to severe panlobular emphysematous changes.. Note nodules are evident. No effusions or infiltrates. No adenopathy. No mediastinal or hilar mass. Normal heart size. Aberrant right subclavian artery once again noted. No acute bony anomalies. Upper abdominal images are unremarkable. IMPRESSION: 1. Stable CT appearance of the chest. 2. Overall no change in the fibronodular density in the left apex. Consider continued 6 month follow-up to confirm one-year stability for this atypical opacity. 3. Moderate to severe panlobular emphysematous changes
== END ==
LOC: RAD 08:38
DX: J44.9 Chronic obstructive pulmonary disease, unspecified (principal)
CPT/HCPCS: Q9967